=== PATIENT | female | born 1965 | race African-American/Black ===

== ENCOUNTER → 2017-02-21 | Outpatient (CLI) | payer OTHER ==
[~2017-02-21] MED LIST: AMLODIPINE BESYL5 MG PO; AUGMENTIN875 MG PO; CLARITIN10 M2 PO; CLEOCIN150 M1 PO; FERROUS GLUCON324 MG PO; HYDROCODON-ACE1 EAC7 PO; LANTUS100 U/ML SUBQ; LEVOXYL0.137 MG PO; LIPITOR40 MG PO; LOPRESSOR PO; METFORMIN HCL500 M1 PO; NORCO1 TAB 10/3 PO
--- NOTE | ~2017-02-21 | EKG ---
PATIENT: PAMELA LOPEZ UNIT #: [id number] Ventricular Rate: 53 BPM Atrial Rate: 53 BPM P-R Interval: 166 ms QRS Duration: 92 ms Q-T Interval: 446 ms QTC Calculation(Bezet): 418 ms P [place]: 41 degrees Calculated R [place]: -17 degrees Calculated T [place]: 22 degrees Diagnosis Line: Sinus bradycardia Diagnosis Line: Otherwise normal ECG Diagnosis Line: No previous ECGs available Diagnosis Line: Confirmed by BRENDON MOISE MD ([id number]) on Diagnosis Line: 02/21/2017 5:28:00 PM INTERPRETING MD: JOSE MARIA HAMMONDS
[2017-02-21 13:05] LABS: HEMATOCRIT 34.5 % (35.0-45.0); HEMOGLOBIN 11.1 gm/dL (12.0-16.0); MEAN CELL VOLUME 79.4 FL (83-96); MEAN CORPUSCULAR HEMOGLOBIN 25.6 PG (28-34); MEAN CORPUSCULAR HGB CONC 32.2 g/dL (30-36); MEAN PLATELET VOLUME 7.6 FL (6.5-11.5); RED BLOOD COUNT 4.35 X10e (3.90-5.30); RED CELL DISTRIBUTION WIDTH 17.2 % (11.0-15.5); WHITE BLOOD COUNT 9.7 X10e3 (4.0-10.5)
[2017-02-21 13:44] LABS: BUN/CREATININE RATIO 17.5; CALCIUM SERUM 9.3 mg/dL (8.4-10.2); CREATININE SERUM 1.2 mg/dL (0.6-1.4); GLOM FILT RATE Estimated 60.2 mL/min (>60); POTASSIUM 4.1 mmol/L (3.5-5.1)
== END | disposition home or self-care (01) ==
LOC: CAMB 11:40 → EDSTATUS 12:00 → CAMB 12:00
PROVIDERS: Surgery
DX: Z01.818 Encounter for other preprocedural examination (principal); K57.32 Diverticulitis of large intestine without perforation or abscess without bleeding; K63.2 Fistula of intestine; N32.1 Vesicointestinal fistula; R00.1 Bradycardia, unspecified
CPT/HCPCS: 36415; 80048; 85027; 93005